=== PATIENT | male | born 1955 | race Caucasian/White ===

== ENCOUNTER 2019-08-05 18:47 | Outpatient (CLI) | payer OTHER ==
--- NOTE | 2019-08-06 11:51 | Ultrasound Report ---
Reason: MASS OF RIGHT LOWER LIMB Procedure Date: 08/05/2019 Accession Number: [id number] / [id number] Procedure: US - Duplex Ext Veins Right CPT Code: Final Report FULL RESULT: EXAM: RIGHT LOWER EXTREMITY VENOUS ULTRASOUND EXAM DATE: 08/05/2019 08:05 PM. CLINICAL HISTORY: Mass of right lower limb. COMPARISON: None. TECHNIQUE: Real-time sonographic vascular imaging was performed by the supervisor commercial fish hatchery through the lower extremity utilizing both color-flow and Doppler spectral analysis. Multiple hobbies and crafts sales representative static images were saved for review. FINDINGS: Common Femoral Vein (CFV): Normal. CFV-GSV Junction: Normal. Profunda Femoral Vein (PFV): Normal. Femoral Vein (FV) Prox: Normal. Femoral Vein (FV) Mid: Normal. Femoral Vein (FV) Dist: Normal. Popliteal Vein: Normal. Posterior Tibial Veins: Normal. Peroneal Veins: Normal. Contralateral Side CFV: Normal. Other: At the site of the palpable lump in the right anterior leg, there is an irregularly shaped, oblong complex heterogeneous avascular collection measuring 2 x 0.5 x 1.7 cm. This is located in the subcutaneous soft tissues. No additional mass or adenopathy. Remaining soft tissues are normal. IMPRESSION: 1. No evidence for deep venous thrombosis. 2. Palpable lump in the anterior right leg corresponds to a complex heterogeneous avascular probable collection. Potentially, this could represent a complex seroma or hematoma. Correlate clinically. If the lump continues to increase in size or becomes painful, recommend MRI evaluation. [facility]
== END 2019-08-05 18:48 | disposition home or self-care (01) ==
LOC: DI 18:47
PROVIDERS: ATTEND Nurse Practitioner Family
DX: R22.41 Localized swelling, mass and lump, right lower limb (principal)

== ENCOUNTER 2019-08-18 08:46 | Outpatient (CLI) | payer OTHER ==
--- NOTE | 2019-08-18 10:39 | XRAY Report ---
Reason: SWELLING,MASS AND LUMP Procedure Date: 08/18/2019 Accession Number: [id number] / [id number] Procedure: XR - Knee 3 View RT CPT Code: Final Report FULL RESULT: EXAM: RIGHT KNEE RADIOGRAPHY EXAM DATE: 08/18/2019 09:01 AM. CLINICAL HISTORY: Swelling, mass and lump. COMPARISON: None. TECHNIQUE: 3 views. FINDINGS: Bones: Serpiginous well-circumscribed lucency within the anterior cortex of the tibia measuring approximately 0.5 x 0.5 cm transverse and 2.5 cm craniocaudad corresponding to the location of skin thickening. No acute fracture. Joints: Tiny patellofemoral marginal osteophytes. Soft Tissues: Soft tissue swelling anterior to the upper tibial diaphysis in the region of the cortical bone abnormality. IMPRESSION: 1. Abnormal well-circumscribed elongated lucency within the anterior cortex of the upper tibial diaphysis with overlying soft tissue swelling. This could represent a focus of cellulitis with underlying osteomyelitis and small intraosseous abscess. Vascular lesion such as hemangioma is a consideration. If indicated, MRI with and without contrast can provide additional characterization. [facility]
== END 2019-08-18 08:47 | disposition home or self-care (01) ==
LOC: DI 08:46
PROVIDERS: ATTEND Nurse Practitioner Family
DX: M89.9 Disorder of bone, unspecified (principal); R22.41 Localized swelling, mass and lump, right lower limb

== ENCOUNTER 2021-09-06 15:02 | Outpatient (CLI) | payer MEDICARE, OTHER ==
[2021-09-06] MEDS ORDERED: IOVERSOL 320 100 ML VIAL IVP ONE ×2 (15:26→16:01)
--- NOTE | 2021-09-06 16:59 | CT Report ---
PROCEDURE: ANGIO ABDOMEN/PELVIS W INDICATIONS: ABDOMINAL BRUIT CONTRAST: IV CONTRAST: Optiray 320 ml: 100 PO CONTRAST: *NO PO CONTRAST TECHNIQUE: After the administration of intravenous contrast, 2.5 mm thick sections acquired from the diaphragm t o the symphysis. 10 mm maximum-intensity projection (MIP) reformats were then acquired. For radiati on dose reduction, the following was used: automated exposure control. COMPARISON: None FINDINGS: Image quality: Excellent. Aorta: Minimal calcific plaque causing no significant stenosis. No aneurysm nor dissection. 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 Superior mesenteric artery is patent. Prom inent pancreaticoduodenal collateral extends from the proximal superior mesenteric artery to the prop er hepatic artery. Right pelvic arteries: Common, internal, and external iliac arteries demonstrate mild diffuse plaque causing minimal stenoses. Left pelvic arteries: Common, internal, and external iliac arteries demonstrate minimal calcific lalo que causing minimal stenosis. Extravascular soft tissues: Lung bases are clear. Heart size is normal. There is reflux of contras t into the hepatic venous vasculature. Liver and spleen are normal in size and enhancement. Gallblad fabiano is contracted. Biliary system is non dilated. Pancreas enhances normally. No adrenal nodules. Kidneys are normal in size and enhancement, without hydronephrosis. Non opacified bowel loops are n ormal in wall thickness and caliber. No free fluid or air. No retroperitoneal or mesenteric adenopa thy. No ventral hernias. No suspicious bony lesions. No vertebral body compression fractures. IMPRESSION: 1. 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 2. Otherwise negative CT angiography of the abdomen, and pelvis. Reviewed by: Jeni Hernandez MD on 09/06/2021 4:58 PM PDT Approved by: Jeni Hernandez MD on 09/06/2021 4:58 PM PDT Station ID: [id number]
== END 2021-09-06 15:03 | disposition home or self-care (01) ==
LOC: LAB 15:02
PROVIDERS: ATTEND Nurse Practitioner Family
DX: I70.8 Atherosclerosis of other arteries (principal)
CPT/HCPCS: 74174; Q9967

== ENCOUNTER 2023-03-04 18:59 | Outpatient (CLI) | payer MEDICARE, OTHER ==
--- NOTE | 2023-03-05 09:38 | Ultrasound Report ---
PROCEDURE: Pelvic Limited or F/U INDICATIONS: INGUINAL PAIN TECHNIQUE: Real-time transabdominal scanning was performed of the inguinal region, with image documentation. COMPARISON: CT 09/06/2021. FINDINGS: Small, right inguinal hernia containing fat. IMPRESSION: Small, right inguinal hernia containing fat. This is confirmed with comparison CT. Reviewed by: Eric Martinez on 03/05/2023 9:37 AM PDT Approved by: Eric Martinez on 03/05/2023 9:37 AM PDT Station ID: [id number]
== END 2023-03-04 19:00 | disposition home or self-care (01) ==
LOC: DI 18:59
PROVIDERS: ATTEND Nurse Practitioner Family
DX: K40.90 Unilateral inguinal hernia, without obstruction or gangrene, not specified as recurrent (principal)